=== PATIENT | female | born 1970 | race Caucasian/White ===

== ENCOUNTER → 2017-12-16 | Outpatient (CLI) | payer OTHER, MEDICAID ==
[~2017-12-16] MED LIST: ATIVAN0.5 MG PO; BENTYL 20 MG TA20 M1 PO; CELEXA20 MG PO; CIPRO250 M1 PO; CLEOCIN HCL150 MG PO; COLACE100 MG PO; DEPO-PROVE150 MG/11 IM; ELIQUIS2.5 MG PO; FENTANYL PATCH75 MCG TRANSDERM; GAS RELIEF80 MG PO; IBUPROFEN 800800 M1 PO; LIDOCAINE VISC100 ML SWISH&SPIT; LIORESAL 10 MG10 MG PO; LYRICA 50 MG50 MG PO; MAGOX 400400 MG PO; MIRALAX17 G1 PO; MIRAPEX0.5 MG PO; NEURONTIN 300300 M1 PO; NORCO 5-325 TA1 EAC1 PO; NORCO 5-325 TA1 EACH PO; ONDANSETRON HCL4 M2 PO; OXAYDO7.5 MG PO; OXYBUTYNIN 5 MG5 M2 PO; OXYCODONE HCL15 MG PO; PANTOPRAZOLE SO40 M1 PO; PERCOCET 5-3251 EACH PO; PERCOCET 7.5-31 EACH PO; PERCOCET PO; PHENERGAN 25 MG25 M1 PO; RESTLESS LEG MED; SEROQUEL 50 MG50 MG PO; TRAZODONE 150150 M1 PO; VALIUM5 MG PO; ZANAFLEX4 MG PO; ZOFRAN ODT4 MG PO
== END ==
LOC: M.CT 11:00
DX: S72.091D Other fracture of head and neck of right femur, subsequent encounter for closed fracture with routine healing (principal); M16.11 Unilateral primary osteoarthritis, right hip; X58.XXXD Exposure to other specified factors, subsequent encounter

== ENCOUNTER → 2018-01-13 | Outpatient (CLI) | payer OTHER, MEDICAID ==
[~2018-01-13] VITALS: Ht 167.6 cm; Wt 57.6 kg
== END ==
LOC: M.SUR 09:35 → EDSTATUS 16:21
DX: Z53.09 Procedure and treatment not carried out because of other contraindication (principal)

== ENCOUNTER 2018-02-03 13:18 | Observation (INO) | payer OTHER, MEDICAID ==
[~2018-02-03] VITALS: Ht 167.6 cm; Wt 68.5 kg
[~2018-02-03 13:18] MED LIST changes: -PERCOCET PO
[2018-02-03 13:45] VITALS: BP 111/67
[2018-02-03 18:45] VITALS: BP 120/74
--- NOTE | 2018-02-03 19:00 | NUR ---
PT ARRIVED TO UNIT AT 1830 VIA BED AND PACU SLUNK SKIN CURER, BALDO. BEDSIDE REPORT RECEIVED. PT OX4, LETHARGIC. ABLE TO COMMUNICATE NEEDS TO STAFF. VS OBTAINED. MONITOR PLACED. L CHEST PORT DRSG C/D/I. PT UP TO BSC WITH TRANSFER OF TWO. NEEDED ITEMS AND CALL LIGHT WITHIN REACH.
[2018-02-03 20:02] VITALS: BP 125/70
[2018-02-04 00:04] VITALS: BP 131/76
[2018-02-04 04:00] VITALS: BP 165/92
[2018-02-04 05:47] LABS: HEMATOCRIT 33.8 % (37.0-47.0); HEMOGLOBIN 11.4 gm/dL (12.0-15.0); MCH 30.8 pg (26.0-34.0); MCHC 33.7 g/dL (28.0-37.0); MCV 91.2 fL (80.0-100.0); RBC 3.7 mil/uL (4.20-5.00); RDW-CV 14.6 % (10.5-14.5); WBC 9.3 thou/uL (4.0-11.0)
[2018-02-04 06:20] LABS: ALBUMIN 3.1 g/dL (3.4-5.0); CALCIUM 8.7 mg/dL (8.5-10.1); CREATININE 0.9 mg/dL (0.6-1.3); MAGNESIUM 1.7 mg/dL (1.8-2.4); POTASSIUM 4.1 mmol/L (3.5-5.1); TOTAL BILIRUBIN 0.3 mg/dL (<0.1-1.0); TOTAL PROTEIN 5.8 g/dL (6.4-8.2)
[2018-02-04 07:30] VITALS: BP 114/78
--- NOTE | 2018-02-04 08:14 | NUR ---
PT IS ABLE TO COMMUNICATE HER NEEDS TO STAFF EFFECTIVELY. CURRENT PAIN MEDICATION REGIMEN HAS BEEN ADEQUATE FOR CONTROLLING HER PAIN UP TO THIS TIME. RIGHT HIP DRESSING CLEAN/DRY/INTACT OVERNIGHT. LEFT CHEST PORT PATENT. COLOSTOMY PATENT; PT TAKES CARE OF IT. POSSIBLE DISCHARGE TODAY.
[2018-02-04 10:00] VITALS: BP 105/73
[2018-02-04 11:29] VITALS: BP 105/73
--- NOTE | 2018-02-04 12:25 | EKG ---
[place] [address] ELECTROCARDIOGRAM REPORT Name: PATRICIAJUS Room: [address] M.R.#: [id number] Admission: 02/03/18 Attend Phys: Erick Estes Discharge: Date of : 70 Report #: [id number] THIS REPORT FOR: //name// [facility] Test Date: 2018-02-03 Test Time: 19:24:57 Pat Name: JUS GOMEZ Department: Room: [facility] Gender: F Salvage Winder: KF : 1970 Requested By: Bossman Gutiérrez Order Number: [id number] Reading MD: Ari Krause Measurements Intervals [place] Rate: 55 P: 53 OK: 132 QRS: 37 QRSD: 104 T: 14 QT: 449 QTc: 430 Interpretive Statements Sinus rhythm RSR' in V1 or V2, right VCD or RVH Compared to ECG 09/09/2017 12:35:23 Right ventricular hypertrophy now present RSR' in V1 or V2 now present Electronically Signed On 02-04-2018 12:24:48 CDT by Ari Krause [email or web address] <ELECTRONICALLY SIGNED> By: Ari Krause MD, [facility] 02/04/18 1224 23 23 Ari Krause MD, [facility] /EPI
--- NOTE | 2018-02-04 12:26 | EKG ---
[place] [address] ELECTROCARDIOGRAM REPORT Name: PATRICIAJUS Room: [address] M.R.#: [id number] Admission: 02/03/18 Attend Phys: Erick Estes Discharge: Date of : 70 Report #: [id number] THIS REPORT FOR: //name// [facility] Test Date: 2018-02-04 Test Time: 08:11:08 Pat Name: JUS GOMEZ Department: Room: [facility] Gender: F Handbag Stitcher: EZ : 1970 Requested By: Bossman Gutiérrez Order Number: [id number] Reading MD: Ari Krause Measurements Intervals [place] Rate: 73 P: -13 MO: 113 QRS: 48 QRSD: 92 T: 30 QT: 419 QTc: 462 Interpretive Statements Sinus rhythm Borderline short MO interval Compared to ECG 09/09/2017 12:35:23 No significant changes Electronically Signed On 02-04-2018 12:26:27 CDT by Ari Krause [email or web address] <ELECTRONICALLY SIGNED> By: Ari Krause MD, [facility] 02/04/18 1226 0811 0811 Ari Krause MD, [facility] /EPI
[2018-02-04] MEDS ORDERED: PERCOCET PO (14:01)
[2018-02-04 14:09] VITALS: BP 105/73
--- NOTE | 2018-02-04 16:12 | NUR ---
VSS, ASSUMED CARE IN THE AM, ASSESSMENT PERFORMED AND CHARTED, FALL PRECAUTIONS IN PLACE AND CALL LIGHT IN REACH, PT IS A&O4 AND UP WITH ONE AND WALKER, PT HAS PAIN IN RIGHT HIP, PT IS TOE TOUCH PRECAUTIONS, PT GOAL IS TO D/C TO HOME ON DAY OF CARE, WILL FOLLOW WITH PLAN OF CARE, AT THIS TIME I HAVE RECIEVED D/C ORDERS, FILLED OUT PT D/C ORDERS, AND MEDICATION SHEETS, PT WAS GIVEN PAIN PILL SCRIPTS, AND MEDICATION INFO SHEETS, PT DENIES ANY QUESTIONS OR CONCERNS AT TIME OD D/C ALL BELONGINGS GATHERED AND PLACED WITH PT, PORT A CATH WAS HEPRIN AND D/C'D PT TAKEN OUT VIA WHEEL CHAIR BY STAFF TO CARE, HOURLY ROUNDS COMPLETED.
--- NOTE | 2018-02-05 07:59 | NUR ---
PT ORDERS RECEIVED, PT DISCHARGED FROM FACILITY PRIOR TO COMPLETION OF PT EVALUATION.
--- NOTE | 2018-02-24 16:14 | OP ---
[address] [address] OPERATIVE REPORT Name: JUS GOMEZ Room: [address] Kelsy Greene#: [id number] Admission: 02/03/18 Attend Phys: Erick Estes Discharge: 02/04/18 Date of : 70 Report #: [id number] THIS REPORT FOR: //name// CC: NEIL Richard DICTATED BY: Nicholas Noel DO DATE OF SERVICE: 02/03/2018 PREOPERATIVE DIAGNOSIS: Right hip painful hardware. POSTOPERATIVE DIAGNOSIS: Right hip painful hardware. PROCEDURE PERFORMED: Right hip in situ screw exchange. SURGEON: Weston Richard DO. LAST INSERTER: Nicholas Noel DO. SECOND EXPERIMENTAL MECHANIC SPACECRAFT: Clay Ramirez DO. ANESTHESIA: General. ANTIBIOTICS: 1 gram Ancef IV preoperatively. ESTIMATED BLOOD LOSS: 5 mL. COMPLICATIONS: None. CONDITION: The patient is stable to PACU. INDICATIONS FOR PROCEDURE: The patient is a 47-year-old female who unfortunately suffered a right femoral neck fracture in 08/2017. This was treated with in situ screw fixation. She did initially do well postoperatively. Over the course of her postoperative course, she did have some continued pain at the right hip. Followup radiographs in the clinic did show some backing out of the cannulated screws. She did complain of painful hardware to the lateral aspect of the right hip as well as some occasional pain into the hip. A CT scan was performed which showed some healing at the fracture site, but the fracture is not completely healed. The patient did wish to have removal of screws due to the symptomatic hardware. The risks, alternatives and complications of this were discussed in detail with the patient in clinic. She did wish to proceed. Due to the CT showing that the fracture is not completely healed, we did recommend exchanging the screws rather [place] [address] OPERATIVE REPORT Name: JUS GOMEZ Room: [address] Kelsy Greene#: [id number] Admission: 02/03/18 Attend Phys: Erick Estes Discharge: 02/04/18 Date of : 70 Report #: [id number] DESCRIPTION OF PROCEDURE: The patient was seen and examined in the preoperative holding area. The correct operative extremity was marked by the operating surgeon. She was transferred to the operating room and placed supine on the operating room table. She was given the benefit of general anesthesia. The right foot was padded and placed in a well-padded boot on the fracture table. The left leg was placed in the well-leg car. A timeout was performed verifying correct patient, procedure and operative extremity and all were in agreement. The right lower extremity was prepped and draped in the usual sterile fashion. A skin incision was made using the early previous healed incision. Dissection was carried down through the IT band using sharp dissection. Next, the previous cannulated screws were then palpable. Three guide pins were then inserted through the center of the cannulated screws. The screws were removed and each screw was removed and measured. The new measurements measured 75 mm for each screw. The proximal screws were replaced, 6-0 cannulated 75 mm screws. The inferior screw was also measured to be 75 mm. An 8-0, 75 mm screw was then inserted over the guide pin into as the inferior screw. Intraoperative radiographs showed maintained fracture reduction with 3 screws in appropriate position. The incision was then thoroughly irrigated. The deep IT band was closed with #1 Vicryl followed by 2-0 Vicryl subcutaneously. Eugene were used on the skin. A sterile dressing of Mepilex was applied to the incision at that time. The patient was awakened from anesthesia and transferred to the PACU in stable condition. The patient tolerated this procedure well. There were no complications. <ELECTRONICALLY SIGNED> By: Weston Richard DO 02/24/18 1614 1640 1720Micalessandro Richard DO /nt
== END 2018-02-04 16:00 | disposition home or self-care (01) ==
LOC: M.SUR 13:18 → M.TBA-ER 17:55 → M.2W 17:55
PROVIDERS: ADMIT Internal Medicine
DX: T84.84XA Pain due to internal orthopedic prosthetic devices, implants and grafts, initial encounter (principal); S72.001G Fracture of unspecified part of neck of right femur, subsequent encounter for closed fracture with delayed healing; N32.81 Overactive bladder; G25.81 Restless legs syndrome; F41.9 Anxiety disorder, unspecified; K58.9 Irritable bowel syndrome, unspecified; G43.909 Migraine, unspecified, not intractable, without status migrainosus; E16.2 Hypoglycemia, unspecified; E44.0 Moderate protein-calorie malnutrition; Z68.24 Body mass index [BMI] 24.0-24.9, adult; G62.9 Polyneuropathy, unspecified; F39 Unspecified mood [affective] disorder; G47.00 Insomnia, unspecified; M62.838 Other muscle spasm; R00.1 Bradycardia, unspecified; F17.210 Nicotine dependence, cigarettes, uncomplicated; Z85.048 Personal history of other malignant neoplasm of rectum, rectosigmoid junction, and anus

== ENCOUNTER 2018-11-08 11:27 | Emergency (ER) | payer OTHER, MEDICAID ==
[~2018-11-08] VITALS: Ht 162.6 cm; Wt 58.1 kg
[~2018-11-08 11:27] MED LIST changes: +PERCOCET PO
[2018-11-08] MEDS ORDERED: PERCOCET 5-3251 EACH PO (13:19)
[2018-11-08 13:30] VITALS: BP 122/73
== END 2018-11-08 13:30 | disposition home or self-care (01) ==
LOC: M.ERS 11:27
DX: S22.060A Wedge compression fracture of T7-T8 vertebra, initial encounter for closed fracture (principal); G43.909 Migraine, unspecified, not intractable, without status migrainosus; F17.210 Nicotine dependence, cigarettes, uncomplicated; Z85.048 Personal history of other malignant neoplasm of rectum, rectosigmoid junction, and anus; Z86.2 Personal history of diseases of the blood and blood-forming organs and certain disorders involving the immune mechanism; Z88.6 Allergy status to analgesic agent; Z88.5 Allergy status to narcotic agent; Z88.2 Allergy status to sulfonamides; Z88.1 Allergy status to other antibiotic agents; Z88.8 Allergy status to other drugs, medicaments and biological substances; W18.39XA Other fall on same level, initial encounter; Y93.89 Activity, other specified; Y92.89 Other specified places as the place of occurrence of the external cause; Y99.8 Other external cause status

== ENCOUNTER 2019-02-20 18:11 | Inpatient (IN) | payer OTHER, MEDICAID ==
[~2019-02-20] VITALS: Ht 167.6 cm; Wt 65.3 kg
--- NOTE | ~2019-02-20 | EEG ---
[address] [address] EEG STUDY REPORT Name: JUS GOMEZ Room: [address] IN ..#: [id number] Admission: 02/20/19 Attend Phys: Joseluis Cho, Discharge: Date of : 70 Report #: [id number] THIS REPORT FOR: //name// CC: Barry Cho This patient was admitted with an episode of syncope. EEG is being done to further evaluate that. EEG was done by placing the electrodes by standard 10-20 system of electrode placement. Both referential and sequential montages were used for recording. Background activity in this patient's EEG is about 9 Hz and 30 microvolt. The patient became drowsy that is associated with bilateral slowing and vertex sharp waves. Photic stimulation was unremarkable. Throughout the record, no active epileptiform activity was noticed. IMPRESSION: This patient's EEG is somewhat intermixed with some theta range slowing. That is a nonspecific abnormality, which can occur with encephalopathy, effect of psychotropic medication, dementia, etc. Clinical correlation is recommended. By: 1819 1836Alex Jacome MD /nt
--- NOTE | ~2019-02-20 | CON ---
[address] [address] CONSULTATION Name: MIRACLE GOMEZLILLIAM SHAUN Room: [address] IN M.R.#: [id number] Admission: 02/20/19 Attend Phys: Joseluis Cho, Discharge: Date of : 70 Report #: [id number] THIS REPORT FOR: //name// CC: Barry Cho DATE OF SERVICE: 02/21/2019 HISTORY OF PRESENT ILLNESS: This is a 48-year-old female patient who was evaluated by me for neurological etiology for the patient's episode of passing out. She indicates that she will be standing in the kitchen and the next thing she will notice that she is on the floor. It looks like the episode is going on for more than 1 year. Somebody suggested that she seeks workup for narcolepsy and she has not done that. She gives a history that in 1996 she was undergoing a custody zamora for her daughter. At that time, she started having similar episode. The psychiatrist told her that her body just shut down because of the stress. She also indicated that she is under a lot of stress even now. History is not very clear. There is some headache associated with this. Sometime she said she just falls down and lose her strength. REVIEW OF SYSTEMS: Positive for multiple problems. She has a compression fracture of thoracic vertebra. She has a femoral neck fracture. She had multiple fractures in the body. She has a lot of trouble with the right arm pain. She continues to smoke. She is on multiple medications from the psychiatrist. She indicates that she was on diazepam, but she could not get it filled with her psychiatrist and she has been off for a few weeks. Episode predates that by at least 1-year. She has a history of hypoglycemia. She has a history of anal cancer, she received radiation there. She gets some headache. It is not clear if they are migraine headache. I carried out the 14-point review of system. It does not look like she has any new eye, ENT, cardiac, respiratory, GI, , constitutional, dermatological, hematological, psychiatric, throat, allergic symptom associated with present symptomatology. PAST MEDICAL HISTORY: Positive for similar episode in 1996 when she was under a lot of stress. FAMILY HISTORY: Negative for any congenital epilepsy. SOCIAL HISTORY: She smokes. PHYSICAL EXAMINATION: Indicate she is alert, responsive, able to follow simple and complex command. Her speech, concentration, fund of knowledge and memory is at her baseline. Cranial nerve examination 2-12 [place] [address] CONSULTATION Name: JUS GOMEZ Room: [address] IN ..#: [id number] Admission: 02/20/19 Attend Phys: Joseluis Cho, Discharge: Date of : 70 Report #: [id number] Neuromuscular examination indicate that she has trouble with right hip, but that is her baseline and that is going on for a long time. Her position sense appeared to be intact. Reflexes are symmetrical at least in the upper extremities. No cerebellar sign. I could not look at the patient's fundus. She is a thinly built individual. Her hearing and vision looks adequate. She has no thyroid mass. Cardiac examination is unremarkable. No marked respiratory difficulty was noticed. She does have scattered rhonchi on both sides. Blood pressure is 135/79, pulse is 99, and temperature is 99. LABORATORY DATA: Her white count is normal. Sodium is 147. She did have multiple CT scans which demonstrated multiple abnormality. IMPRESSION: 1. As far as episode of passing out is concerned, it is unlikely that they are neurological. However, I will do some basic workup to exclude that. 2. She has multiple other problems including the hip problem, compression fracture of the spine. I will defer that evaluation and management to you. I did order an MRI of the thoracic spine to evaluate that further. 3. She probably needs some other workup including cardiac workup and systemic workup to exclude any pathology in that regard. 4. She needs a psychiatric consult. 5. She may be having some withdrawal from diazepam because she has been on that for long time. Again, psychiatrist need to address that. RECOMMENDATIONS: Neurologically, I will do an MRI of the brain and an EEG. If that is negative, she should go to [facility] or [facility] to have a prolonged EEG done. In that circumstances, she should be worked up for systemic cause for her problem as well as follow up with her psychiatrist. She should not drive and she should take seizure precautions, which were discussed with her. We will follow up on this testing, but I went ahead and ordered an MRI of the thoracic spine along, so that she can get it done with MRI of the brain. Thank you very much for this referral and if you have any question, please feel free to contact me. By: 1321 0320Alex Jacome MD /tristan
[2019-02-20 18:18] VITALS: BP 144/79
[2019-02-20] MEDS ORDERED: GAS-X125 MG PO (18:26)
[2019-02-20] MEDS ORDERED: COLACE100 MG PO (18:26)
--- NOTE | 2019-02-20 19:26 | NUR ---
ASSUMED PT CARE C-COLLAR PLACED
[2019-02-20 19:34] LABS: ABSOLUTE BASOPHILS 0.1 thou/uL (0.0-0.2); ABSOLUTE EOSINOPHILS 0.1 thou/uL (0.0-0.7); ABSOLUTE MONOCYTES 0.9 thou/uL (0.0-1.2); ABSOLUTE NEUTROPHILS 3.7 thou/uL (1.6-8.1); BASOPHILS 0.7 %; EOSINOPHILS 1.8 %; HEMATOCRIT 29.9 % (37.0-47.0); HEMOGLOBIN 10.2 gm/dL (12.0-15.0); LYMPHOCYTES 38.6 %; MCH 31.4 pg (26.0-34.0); MCV 92.3 fL (80.0-100.0); MONOCYTES 11.8 %; NUCLEATED RBCS 0 /100WBC; PLATELET COUNT* 321 thou/uL (150-400); POLYS 47.1 %; RBC 3.24 mil/uL (4.20-5.00); RDW-CV 13.7 % (10.5-14.5); WBC 7.8 thou/uL (4.0-11.0)
[2019-02-20 19:51] LABS: ANION GAP 15 mmol/L (7-16); BUN 16 mg/dL (7-18); CALCIUM 8.8 mg/dL (8.5-10.1); CHLORIDE 111 mmol/L (98-107); CO2 21 mmol/L (21-32); GLUCOSE 79 mg/dL (70-99); POTASSIUM 3.1 mmol/L (3.5-5.1); SODIUM 147 mmol/L (136-145); TROPONIN-I LEVEL <0.06 ng/mL (<0.06)
[2019-02-20 19:52] LABS: ALBUMIN 3.3 g/dL (3.4-5.0); ALKALINE PHOSPHATASE 110 U/L (46-116); LIPASE 95 U/L (73-393); SGOT 15 U/L (15-37); SGPT 20 U/L (30-65); TOTAL BILIRUBIN 0.2 mg/dL (<0.1-1.0); TOTAL PROTEIN 6.2 g/dL (6.4-8.2)
[2019-02-20 20:30] LABS: URINE BILIRUBIN NEGATIVE (Negative); URINE BLOOD NEGATIVE (Negative); URINE CLARITY CLEAR; URINE COLOR YELLOW; URINE GLUCOSE-RANDOM NEGATIVE (Negative); URINE KETONES NEGATIVE (Negative); URINE LEUKOCYTES-REFLEX NEGATIVE (Negative); URINE NITRITE-REFLEX NEGATIVE (Negative); URINE PROTEIN TRACE (Negative); URINE SPECIFIC GRAVITY >= 1.030 (1.005-1.030); URINE UROBILINOGEN 0.2 E.U./dl (0.2-1.0)
[2019-02-20 20:36] LABS: AMP/METHAMP Negative (Negative); BARBITURATES Negative (Negative); BENZODIAZEPINES Negative (Negative); COCAINE Negative (Negative); METHADONE Negative (Negative); OPIATES Negative (Negative); PCP Negative (Negative); THC POSITIVE (Negative)
[2019-02-20 22:01] VITALS: BP 136/75
[2019-02-20 22:30] VITALS: BP 107/73
[2019-02-20] MEDS ORDERED: NEXIUM40 MG PO (22:43)
[2019-02-20] MEDS ORDERED: ASPERCREME1 EACH TOP (22:45)
[2019-02-20] MEDS ORDERED: OXYBUTYNIN 5 MG5 M2 PO (22:46)
[2019-02-20] MEDS ORDERED: PHENERGAN 25 MG25 M1 PO (22:48)
--- NOTE | 2019-02-21 00:01 | NUR ---
48 Y/O FEMALE ADMITTED TO TELEMETRY ROOM 232 AT APPROXIMATELY 2205 WITH AN ADMITTING DIAGNOSIS OF SYNCOPE, CHRONIC HIP PAIN, T8 COMPRESSION FRACTURE. PT TRACING SR ON MONITOR. DENIES SOA, CP, N/V/D. PT HAS COLOSTOMY. PT REPORTS 7/10 RIGHT HIP/GROIN PAIN. WHILE RECONCILING HOME MEDICATIONS, PT STATES THAT SHE WILL NO LONGER USE [facility] STARTED TO REFUSE TO REFILL PRESCRIPTIONS FROM HER FROM EMERGENCY ROOMS D/T TO EXCESSIVE AMOUNTS OF PRESCRIPTIONS FROM MULTIPLE EMERGENCY ROOMS. VSS. PT DOES NOT APPEAR TO BE IN ANY DISTRESS AT THIS TIME. PT DENIES ANY FURTHER NEEDS AT THIS TIME. HOURLY ROUNDING FOR PT SAFETY. CLWR.
[2019-02-21 04:00] VITALS: BP 106/67
[2019-02-21 08:00] VITALS: BP 137/81
--- NOTE | 2019-02-21 10:09 | NUR ---
ASSUMED CARE OF PATIENT THIS AM AT 0730. PATIENT IS ALERT AND ORIENTED X 4. SHE C/O LEFT KNEE AND HIP PAIN. PATIENT MEDICATED FOR PAIN X 1. TELE SHOWS NSR. PATIENT TAKEN TO RADOLOGY PER W/C FOR TESTS.
[2019-02-21 12:00] VITALS: BP 135/79
--- NOTE | 2019-02-21 13:24 | EKG ---
[place] [address] ELECTROCARDIOGRAM REPORT Name: PATRICIAJUS SHAUN Room: [address] ADM IN M.R.#: [id number] Admission: 02/20/19 Attend Phys: Joseluis Cho, Discharge: Date of : 70 Report #: [id number] THIS REPORT FOR: //name// [facility] ED Test Date: 2019-02-20 Test Time: 19:05:20 Pat Name: JUS GOMEZ Department: Room: [facility] Gender: Graphite Grinder: Emma OAKES : 1970 Requested By: Neelima Serrano Order Number: [id number] MD: Gibran Tate Measurements Intervals [place] Rate: 75 P: 41 OH: 131 QRS: 37 QRSD: 105 T: 17 QT: 412 QTc: 461 Interpretive Statements Sinus rhythm Compared to ECG 02/04/2018 08:11:08 No significant changes Electronically Signed On 02-21-2019 13:24:22 CDT by Gibran Tate [email or web address] <ELECTRONICALLY SIGNED> By: Gibran Tate MD, [facility] 02/21/19 1324 190 04 Gibran Tate MD, FAC /EPI
--- NOTE | 2019-02-21 13:55 | NUR ---
MET WITH PT TO DISCUSS HOME SITUATION/DC PLANNING. PT LIVES ALONE IN [place] MOTHER AND DTR LIVE CLOSEBY AND ASSIST WITH TRANSPORTATION NEEDED. PT USES [employer] AND HAS 2 OSTOMIES, GETS HER SUPPLIES THRU [employer]. PT STTES SHE IS NORMALLY ABLE TO DO HER OWN ADLS AND IADLS BUT HAVING MORE DIFFICULTY WITH CLEANING. PT IS INTERESTED IN GETTING ASSIST WITH IT AND IS INTERESTED IN IN HOME CARE THRU HER MEDICAID IF QUALIFIES. WILL CHECK [facility]. PT HAS HAD HH IN THE PAST, SHE IS INTERESTED IN HH AT DC ALSO, HAS NO PREFERENCE ON AG[facility], WOULD BE AGREEABLE TO [facility] FOR THEM ALSO. HAVE ASKED [facility] TO MEET WITH PT TO DISCUSS. WILL FOLLOW
[2019-02-21 14:39] LABS: CALCIUM 8.3 mg/dL (8.5-10.1); MAGNESIUM 1.7 mg/dL (1.8-2.4)
[2019-02-21 16:00] VITALS: BP 129/66
--- NOTE | 2019-02-21 16:08 | 2DMMODE ---
[place] [address] 2 D/M-MODE ECHOCARDIOGRAM Name: JUS GOMEZ Room: [address] IN [facility]#: [id number] Admission: 02/20/19 Attend Phys: Joseluis Looney Discharge: Date of : 70 Date of Service: 02/21/19 1608 Report #: [id number] THIS REPORT FOR: //name// APPROVED REPORT Study performed: 02/21/2019 14:36:30 EXAM: Comprehensive 2D, Doppler, and color-flow Echocardiogram Patient Location: In-Patient Room #: [facility] Status: routine BSA: 1.69 HR: 67 bpm BP: 137/81 mmHg Rhythm: NSR Other Information Study Quality: Good Indications Syncope 2D Dimensions IVSd: 10.23 (7-11mm) LVOT Diam: 18.62 (18-24mm) LVDd: 42.81 mm PWd: 7.84 (7-11mm) Ascending Ao: 28.52 (22-36mm) LVDs: 23.10 (25-40mm) Aortic Root: 29.37 mm Volumes Left Atrial Volume (Systole) LA ESV Index: 17.20 mL/m2 Aortic Valve AoV Peak Patrick.: 1.38 m/s AO Peak Gr.: 7.56 mmHg LVOT Max P.60 mmHg AO Mean Gr.: 3.85 mmHg LVOT Mean P.12 mmHg LVOT Max V: 1.07 m/s AO V2 VTI: 24.11 cm LVOT Mean V: 0.66 m/s AFSHAN (VTI): 2.38 cm2 LVOT V1 VTI: 21.07 cm Mitral Valve E/A Ratio: 1.76 MV Decel. Time: 203.05 ms MV E Max Patrick.: 0.80 m/[place] [address] 2 D/M-MODE ECHOCARDIOGRAM Name: PATRICIAJUS Room: [address] IN ..#: [id number] Admission: 02/20/19 Attend Phys: Joseluis Looney Discharge: Date of : 70 Date of Service: 02/21/19 1608 Report #: [id number] MV PHT: 58.88 ms MVA (PHT): 3.74 cm2 TDI E/Lateral E': 5.33 E/Medial E': 6.15 Medial E' Patrick.: 0.13 m/s Lateral E' Patrick.: 0.15 m/s Pulmonary Valve PV Peak Patrick.: 0.81 m/s PV Peak Gr.: 2.63 mmHg Left Ventricle The left ventricle is normal size. There is normal LV segmental wall motion. There is normal left ventricular wall thickness. Left ventricular systolic function is normal. The left ventricular ejection fraction is within the normal range. LVEF is 60-65%. The left ventricular diastolic function is normal. Right Ventricle The right ventricle is normal size. The right ventricular systolic function is normal. Atria The left atrium size is normal. The right atrium size is normal. Aortic Valve The aortic valve is normal in structure. No aortic regurgitation is present. There is no aortic valvular stenosis. Mitral Valve The mitral valve is normal in structure. Trace mitral regurgitation. No evidence of mitral valve stenosis. Tricuspid Valve The tricuspid valve is normal in structure. Unable to assess PA pressure. Trace tricuspid regurgitation. Pulmonic Valve The pulmonary valve is normal in structure. There is no pulmonic valvular regurgitation. Great Vessels The aortic root is normal in size. IVC is normal in size and collapses >50% [place] [address] 2 D/M-MODE ECHOCARDIOGRAM Name: JUS GOMEZ Room: [address] IN [facility]#: [id number] Admission: 02/20/19 Attend Phys: Joseluis Looney Discharge: Date of : 70 Date of Service: 02/21/19 1608 Report #: [id number] Pericardium There is no pericardial effusion. <Conclusion> Left ventricular systolic function is normal. The left ventricular ejection fraction is within the normal range. <ELECTRONICALLY SIGNED> By: Gibran Tate MD, [facility] 02/21/19 1608 1608 1608 Gibran Tate MD, [facility] /INF
[2019-02-21 19:15] VITALS: BP 125/71
[2019-02-22] VITALS: BP 124/77
--- NOTE | 2019-02-22 02:39 | NUR ---
INITIAL ASSESSMENT COMPLETED CHARTED. TRACING SR ON MONITOR. VSS. PT C/O CHRONIC HIP PAIN. PRN PAIN MEDICATIONS GIVEN PER EMAR. PT SLEEPING. IVF INFUSING ORDERED. NO NEW NEEDS OR CONCERNS AT THIS TIME. HOURLY ROUNDING AND FALL PRECAUTIONS IN PLACE. CLWR.
[2019-02-22 04:00] VITALS: BP 106/65
[2019-02-22 06:07] LABS: ALBUMIN 2.6 g/dL (3.4-5.0); CALCIUM 8.4 mg/dL (8.5-10.1); CREATININE 0.9 mg/dL (0.6-1.3); POTASSIUM 3.7 mmol/L (3.5-5.1); TOTAL BILIRUBIN 0.2 mg/dL (<0.1-1.0); TOTAL PROTEIN 5.3 g/dL (6.4-8.2)
--- NOTE | 2019-02-22 08:00 | NUR ---
RECEIVED REPORT AND ASSUMED CARE OF PT AT 0730.PT A/OX4.TRACING SR ON THE MONITOR.IV PATENT AND WITH FLUID INFUSING.PT COMPLAINTS OF PAIN,MANAGED WITH MEDS.UP STAND BY.ON RA.CALL LIGHT AND FALL PRECAUTIONS IN PLACE.COLOCTOMY STOMA PINK AND MOIST WITH BAG INATCT AND PATENT.WILL CONTINUE TO MONITOR.
[2019-02-22 08:26] VITALS: BP 136/84
[2019-02-22 12:36] VITALS: BP 136/84
--- NOTE | 2019-02-22 12:39 | NUR ---
JACQUELYN FROM [facility] MET WITH PT AND THEY ARE ABLE TO ACCEPT FOR HH. PT TO DC LATER TODAY. FAXED DC ORDERS TO JACQUELYN AT [phone]. DISCUSSED AGAIN PT CONTACTING MEDICAID TO SET UP IN HOME SERVICES VISIT. PT VOICED CONCERNS ABOUT HER MEDS, NURSE AWARE. DENIES OTHER NEEDS.
--- NOTE | 2019-02-22 14:23 | NUR ---
PT OK TO DISCHARGE.ALL DISCHARGE WORK COMPLETED.EDUCATION PROVIDED ON FOLLOW UP AND MEDS.HEART MONITOR AND IV TAKEN OUT.HEART MONITOR RETURNED TO STATION.ALL PERSONAL BELONGINGS HANDED OVER TO PT.PT WHEELED TO HER CAR BY NURSING STAFF.
--- NOTE | 2019-02-22 14:34 | NUR ---
I have reviewed the documentation by CLEO RIOS from 4720 to 6107 and I concur with it.
== END 2019-02-22 14:36 | disposition home health service (06) | DRG 551 ==
LOC: M.ERS 18:11 → M.2W 20:59 → M.TBA-ER 20:59 → M.2W 21:43
PROVIDERS: Internal Medicine; Nurse Practitioner Family; ADMIT Family Medicine
DX: S22.069A Unspecified fracture of T7-T8 vertebra, initial encounter for closed fracture (principal); S72.001A Fracture of unspecified part of neck of right femur, initial encounter for closed fracture; E43 Unspecified severe protein-calorie malnutrition; F12.90 Cannabis use, unspecified, uncomplicated; F17.210 Nicotine dependence, cigarettes, uncomplicated; E16.2 Hypoglycemia, unspecified; F41.9 Anxiety disorder, unspecified; G43.909 Migraine, unspecified, not intractable, without status migrainosus; F32.9 Major depressive disorder, single episode, unspecified; G89.4 Chronic pain syndrome; E86.0 Dehydration; S22.079A Unspecified fracture of T9-T10 vertebra, initial encounter for closed fracture; Z93.3 Colostomy status; Z93.2 Ileostomy status; Z85.048 Personal history of other malignant neoplasm of rectum, rectosigmoid junction, and anus; Z88.6 Allergy status to analgesic agent; Z88.2 Allergy status to sulfonamides; Z88.8 Allergy status to other drugs, medicaments and biological substances; Z92.21 Personal history of antineoplastic chemotherapy; Z92.3 Personal history of irradiation; Z90.49 Acquired absence of other specified parts of digestive tract; Z68.23 Body mass index [BMI] 23.0-23.9, adult; Z79.899 Other long term (current) drug therapy; W18.39XA Other fall on same level, initial encounter; Y93.89 Activity, other specified; Y92.89 Other specified places as the place of occurrence of the external cause; Y99.8 Other external cause status

== ENCOUNTER → 2019-03-20 | Outpatient (CLI) | payer OTHER, MEDICAID ==
[~2019-03-20] MED LIST changes: +AGONEAZE 2.5%-1 EACH; +ASPERCREME1 EACH TOP; +GAS-X125 MG PO; +LYRICA100 MG PO; +MOBIC15 MG PO; +NEXIUM40 MG PO; +PROAIR HFA8.5 GM; +VOLTAREN GEL 1100 G2 TOP
--- NOTE | 2019-04-03 15:47 | PAINCON ---
[address] [address] PAIN MANAGEMENT CONSULTATION Name: JUS GOMEZ Room: [facility] ROZINA Greene#: [id number] Admission: 03/20/19 Attend Phys: Alejandra Rose MD Discharge: Date of : 70 Report #: [id number] THIS REPORT FOR: //name// CC: Barry Rose DATE OF SERVICE: 03/20/2019 CHIEF COMPLAINT: Unbearable pain from my hips to my knees sometimes down to my ankles. HISTORY OF PRESENT ILLNESS: The patient is a 48-year-old female who has been referred to the pain clinic for evaluation. She states that she has pain, which has been problematic for some time. She has been having problems since 2017. She has a somewhat long and complicated history. She has been experiencing some pain in her knee and her hip. States that she feels somewhat like she is having charley horse in her leg. States that her hip had been fractured in the past. As a result of stabilizing her hip, they put in a set of 3 screws. States that the screws were not the right size. As a result, she had another operation at another point in time with placement of smaller screws. She continues to have pain and discomfort at this point, she describes pain, particularly when she is moving. She is unable to walk on her leg without significant discomfort. States that she has a number of heel spacers in her shoe because one leg appears longer than the other. Describes her discomfort as steady, constant, shooting, cramping, throbbing, and pounding. Rates her pain as a 9/10 most of the time. She states that she oftentimes uses a crutch. She also ambulates using a wheelchair. This involves the right leg and right hip. ALLERGIES: CODEINE, HYDROCODONE, BACTRIM, TRAMADOL, AND MOVANTIK. CURRENT MEDICATIONS: Albuterol, ProAir 8.5 mg q. 4 hours p.r.n., baclofen 10 mg b.i.d., total of the dose to 20 mg b.i.d., Valium 5 mg b.i.d., Bentyl 20 mg, irritable bowel, 40 mg 4 times daily, Colace 100 mg, Nexium 40 mg, ibuprofen 800 mg, Aspercreme p.r.n., Depo-Provera 150 mg intramuscular, oxybutynin 5 mg t.i.d., Mirapex 0.5 mg restless leg t.i.d., Lyrica 50 mg b.i.d., Phenergan 25 mg q.6 hours for vomiting, Seroquel 50 mg sleep/anxiety, simethicone 125 mg, and Desyrel 300 mg at bedtime. PAST MEDICAL HISTORY: 1. Anal cancer, status post surgery. 2. Hypoglycemia. 3. Anemia. 4. Migraine. 5. Fracture, right hip. 6. T9 compression fracture. 7. [place] [address] PAIN MANAGEMENT CONSULTATION Name: JUS GOMEZ Room: [facility]#: [id number] Admission: 03/20/19 Attend Phys: Alejandra Rose MD Discharge: Date of : 70 Report #: [id number] 8. Black outs. 9. Hypotension. 10. PTSD. 11. Tooth problems, the patient is edentulous. 12. Neck pain. 13. Drug-induced constipation. 14. Insomnia. 15. Chronic pain syndrome. 16. The patient has had greater than 10 surgeries. 17. Radiation therapy to the pelvis area because of anal cancer. PAST SURGICAL HISTORY: Surgery for removal of malignant neoplasm from the anus on numerous occasions. The patient has provided a listing of her surgeries, it is significant, please see chart. SOCIAL HISTORY: The patient is disabled. She lives alone. REVIEW OF SYSTEMS: Weight change, decreased appetite, fatigue, weakness, headaches, wears glasses, chronic sinus problems, shortness of breath, swelling of feet, ankles and hands, asthma, loss of appetite, nausea and vomiting, bowel pain, constipation, abdominal pain, joint pain, joint stiffness, weakness of muscles, muscle cramping, back pain, difficulty walking, rash, psoriasis, varicose veins, spider veins, convulsions/seizures/blackouts. Head injury, 3 concussions in 1-1/2 to 2 months. Memory loss, nervousness, depression, insomnia, bleeding, and anemia. LABORATORY DATA: No new laboratory values are available at the time of our interview. PAIN CLINIC ASSESSMENT AND PQRS: 1. History of osteoarthritis. The patient has arthritic changes involving her right hip and leg. She is not being treated for osteoarthritis. 2. Height 5 feet 6 inches, weight 123 pounds, BMI is 20. 3. Vital signs; blood pressure 106/60, heart rate 132, respiratory rate 16, room air saturation 95%, temperature is 98.9. 4. Pain intensity is 9/10. 5. Fall risk. The patient had her primary fall, which was problematic in 2017. As when she broke her hip. Had placement of screws. 6. Blood thinner. The patient is not on a blood thinning medication. 7. Hypertension. The patient is not being treated for hypertension. 8. Opioids greater than 6 weeks. The patient is not receiving opioid medications at this juncture. 9. Risk assessment tool, moderate for use of opioids. 10. Functional assessment tool. 11. Recreational drug use. The patient denies use of recreational drugs. 12. Tobacco: [place] [address] PAIN MANAGEMENT CONSULTATION Name: JUS GOMEZ Room: [facility]#: [id number] Admission: 03/20/19 Attend Phys: Alejandra Rose MD Discharge: Date of : 70 Report #: [id number] 13. Alcohol. The patient denies significant use of alcoholic beverages. PHYSICAL EXAMINATION: GENERAL: The patient is a white female. Appears somewhat older than her stated age. HEENT: Normocephalic, atraumatic. Extraocular eye muscles intact. The patient is edentulous. NECK: Without adenopathy or JVD. MUSCULOSKELETAL: The patient complains of some pins and needle sensation down into her left arm. Complains of pain and discomfort in the right hip as well as the lateral portion of her right thigh. The patient feels that she may have torn some ligaments or muscles in her right knee. The patient feels that her right leg is about two inches shorter than the left. Does have some shoe inserts into her right shoe. IMPRESSION: 1. Chronic pain primarily involving the right lower extremity. 2. Anal cancer, status post surgery. 3. Hypoglycemia. 4. Anemia. 5. Migraines. 6. Fracture, right hip. 7. T9 compression fracture. 8. T8 compression fracture. 9. Black outs. 10. Hypotension. 11. PTSD. 12. Tooth problems, the patient is edentulous. 13. Neck pain. 14. Drug-induced constipation. 15. Insomnia. 15. Chronic pain syndrome. 17. The patient has had greater than 10 surgeries. 18. Radiation therapy to the pelvis area because of anal cancer. RECOMMENDATIONS: We spoke with the patient for about 45 minutes. She does have a very complex case. I am not sure that we have in our pain clinic capabilities to handle such a complex patient. I think the patient should consider physical therapy. We would have the patient continue with her medications of trazodone 150 mg 2 p.o. at bedtime, Lyrica 100 mg b.i.d., Meloxicam 15 mg 1 p.o. daily and the patient should monitor her GI tract if she notes any problems with worsening of her GI tract she should consider stopping the Mobic medication. The patient also has chronic problems with her back. I think evaluation for the possibility of a back brace to reduce pain by restricting her mobility would be reasonable. We have [place] [address] PAIN MANAGEMENT CONSULTATION Name: JUS GOMEZ [id number] Admission: 03/20/19 Attend Phys: Alejandra Rose MD Discharge: Date of : 70 Report #: [id number] We would like to thank you for letting us participate in her care. We hope she continues to improve. <ELECTRONICALLY SIGNED> By: Alejandra Rose MD 04/03/19 1547 [id number]. Andres Rose MD /nt
== END ==
LOC: M.PC 01:42
DX: S72.001A Fracture of unspecified part of neck of right femur, initial encounter for closed fracture (principal); F43.10 Post-traumatic stress disorder, unspecified; S22.060A Wedge compression fracture of T7-T8 vertebra, initial encounter for closed fracture; S22.070A Wedge compression fracture of T9-T10 vertebra, initial encounter for closed fracture; M25.561 Pain in right knee; M25.562 Pain in left knee; G89.4 Chronic pain syndrome; M54.2 Cervicalgia; G43.909 Migraine, unspecified, not intractable, without status migrainosus; D64.9 Anemia, unspecified; E16.2 Hypoglycemia, unspecified; G47.00 Insomnia, unspecified; C21.0 Malignant neoplasm of anus, unspecified; I95.9 Hypotension, unspecified; R55 Syncope and collapse; K59.09 Other constipation; Z79.899 Other long term (current) drug therapy; X58.XXXA Exposure to other specified factors, initial encounter; Y93.89 Activity, other specified; Y92.89 Other specified places as the place of occurrence of the external cause; Y99.8 Other external cause status

== ENCOUNTER 2019-03-22 13:56 | Emergency (ER) | payer OTHER, MEDICAID ==
[~2019-03-22] VITALS: Ht 167.6 cm; Wt 55.3 kg
[~2019-03-22 13:56] MED LIST changes: -AGONEAZE 2.5%-1 EACH; -VOLTAREN GEL 1100 G2 TOP
[2019-03-22] MEDS ORDERED: AGONEAZE 2.5%-1 EACH (14:12)
[2019-03-22] MEDS ORDERED: VOLTAREN GEL 1100 G2 TOP (14:46)
[2019-03-22 16:01] VITALS: BP 104/74
== END 2019-03-22 15:30 | disposition home or self-care (01) ==
LOC: M.ERS 13:56
DX: M25.561 Pain in right knee (principal); M25.551 Pain in right hip; G43.909 Migraine, unspecified, not intractable, without status migrainosus; I95.9 Hypotension, unspecified; F17.210 Nicotine dependence, cigarettes, uncomplicated; Z88.1 Allergy status to other antibiotic agents; Z88.2 Allergy status to sulfonamides; Z88.5 Allergy status to narcotic agent; Z88.6 Allergy status to analgesic agent; Z88.8 Allergy status to other drugs, medicaments and biological substances; Z85.048 Personal history of other malignant neoplasm of rectum, rectosigmoid junction, and anus; Z86.2 Personal history of diseases of the blood and blood-forming organs and certain disorders involving the immune mechanism

== ENCOUNTER 2019-04-26 22:23 | Inpatient (IN) | payer OTHER, MEDICAID ==
[~2019-04-26] VITALS: Ht 167.6 cm; Wt 57.6 kg
[~2019-04-26 22:23] MED LIST changes: +AGONEAZE 2.5%-1 EACH; +VOLTAREN GEL 1100 G2 TOP
[2019-04-26 22:42] VITALS: BP 113/95
[2019-04-26 23:27] LABS: ABSOLUTE BASOPHILS 0.1 thou/uL (0.0-0.2); ABSOLUTE EOSINOPHILS 0.2 thou/uL (0.0-0.7); ABSOLUTE LYMPHOCYTES 2.5 thou/uL (0.8-5.3); ABSOLUTE MONOCYTES 0.8 thou/uL (0.0-1.2); ABSOLUTE NEUTROPHILS 4.4 thou/uL (1.6-8.1); BASOPHILS 0.9 %; EOSINOPHILS 2.3 %; HEMATOCRIT 37.4 % (37.0-47.0); HEMOGLOBIN 12.4 gm/dL (12.0-15.0); LYMPHOCYTES 31.6 %; MCH 30.4 pg (26.0-34.0); MCHC 33.1 g/dL (28.0-37.0); MCV 91.7 fL (80.0-100.0); MONOCYTES 10.2 %; MPV 7.8 fl. (7.2-11.1); NUCLEATED RBCS 0 /100WBC; PLATELET COUNT* 367 thou/uL (150-400); RBC 4.08 mil/uL (4.20-5.00)
[2019-04-26 23:34] LABS: ANION GAP 13 mmol/L (7-16); BUN 22 mg/dL (7-18); CALCIUM 9.8 mg/dL (8.5-10.1); CHLORIDE 110 mmol/L (98-107); CO2 23 mmol/L (21-32); CREATININE 1.2 mg/dL (0.6-1.3); GLUCOSE 110 mg/dL (70-99); SODIUM 146 mmol/L (136-145)
[2019-04-26 23:43] LABS: ALBUMIN 3.4 g/dL (3.4-5.0); ALKALINE PHOSPHATASE 117 U/L (46-116); SGOT 13 U/L (15-37); SGPT 26 U/L (30-65); TOTAL BILIRUBIN 0.2 mg/dL (<0.1-1.0); TOTAL PROTEIN 6.8 g/dL (6.4-8.2); TROPONIN-I LEVEL <0.06 ng/mL (<0.06)
[2019-04-27 03:35] VITALS: BP 133/79
--- NOTE | 2019-04-27 09:46 | EKG ---
[place] [address] ELECTROCARDIOGRAM REPORT Name: PATRICIAJUS SHAUN Room: [place] [address] ADM IN M.R.#: [id number] Admission: 04/26/19 Attend Phys: Analy Bush MD Discharge: Date of : 70 Report #: [id number] THIS REPORT FOR: //name// [facility] ED Test Date: 2019-04-26 Test Time: 23:41:47 Pat Name: JUS GOMEZ Department: Room: [facility] Gender: F Technical Communicator: ID : [id number] Requested By: Kristopher Pratt Order Number: [id number] MD: Ari Krause Measurements Intervals [place] Rate: 70 P: -14 TX: 123 QRS: 25 QRSD: 86 T: 19 QT: 407 QTc: 440 Interpretive Statements Sinus rhythm Compared to ECG 02/20/2019 19:05:20 No significant changes Electronically Signed On 04-27-2019 9:45:50 CDT by Ari Krause [email or web address] <ELECTRONICALLY SIGNED> By: Ari Krause MD, [facility] 04/27/19 0945 [id number] Ari Krause MD, [facility] /EPI
[2019-04-27 13:32] VITALS: BP 124/90
[2019-04-27 14:56] VITALS: BP 124/90
== END 2019-04-27 14:56 | disposition home or self-care (01) | DRG 919 ==
LOC: M.ERS 22:23 → M.TBA-ER 23:32
PROVIDERS: Emergency Medicine Emergency Medical Services; ADMIT Internal Medicine
DX: M96.89 Other intraoperative and postprocedural complications and disorders of the musculoskeletal system (principal); S72.001A Fracture of unspecified part of neck of right femur, initial encounter for closed fracture; E44.0 Moderate protein-calorie malnutrition; G89.29 Other chronic pain; F17.210 Nicotine dependence, cigarettes, uncomplicated; W06.XXXA Fall from bed, initial encounter; Z93.3 Colostomy status; Z68.20 Body mass index [BMI] 20.0-20.9, adult; Z85.048 Personal history of other malignant neoplasm of rectum, rectosigmoid junction, and anus; Z79.899 Other long term (current) drug therapy; Z88.6 Allergy status to analgesic agent; Z88.2 Allergy status to sulfonamides; Z88.8 Allergy status to other drugs, medicaments and biological substances; Y93.89 Activity, other specified; Y92.89 Other specified places as the place of occurrence of the external cause; Y99.8 Other external cause status

== ENCOUNTER → 2019-05-10 | Outpatient (CLI) | payer OTHER, MEDICAID ==
[~2019-05-10] MED LIST changes: +BUTRANS1 EAC1 TRANSDERM
--- NOTE | ~2019-05-10 | PAINCON ---
[address] [address] PAIN MANAGEMENT CONSULTATION Name: JUS GOMEZ Room: [facility] Jc#: [id number] Admission: 05/10/19 Attend Phys: Alejandra Rose MD Discharge: Date of : 70 Report #: [id number] THIS REPORT FOR: //name// CC: Barry Rose DATE OF SERVICE: 05/10/2019 CHIEF COMPLAINT: Right hip pain. HISTORY: The patient is a 48-year-old female who has been seen in the pain clinic. The patient as you recall has quite a complicated history. States that she has had some problems with colon cancer. She was irradiated. She fractured her hip. She states that the screws were placed. Screws have migrated. States that she is going to see an Orthopedic surgeon tomorrow, 05/11/2019. She has difficulty walking because of the instability of her hip. The patient states she has a history of blackouts. She has used opioid medications in the past. States that with the opioid medication such as hydrocodone, oxycodone, the efficacy/effect of these medications began to wear off relatively quickly. She was treated with fentanyl patches. She felt that those medications may have been helpful. ALLERGIES: CODEINE, HYDROCODONE, BACTRIM, TRAMADOL, AND MOVANTIK. CURRENT MEDICATIONS: Albuterol, ProAir 8.5 mg q.4 hours p.r.n., baclofen 10 mg t.i.d., total dose is 20 mg b.i.d., Valium 5 mg b.i.d., Bentyl 20 mg for irritable bowel, 40 mg 4 times daily, Colace 100 mg, Nexium 4 mg, ibuprofen 800 mg, Aspercreme p.r.n., Depo-Provera 150 mg intramuscular, oxybutynin 5 mg t.i.d., Mirapex 0.5 mg for restless leg, Lyrica 50 mg b.i.d., Phenergan 25 mg q.6 hours for vomiting, Seroquel 50 mg at bedtime for sleep and anxiety, simethicone 125 mg, Desyrel 300 mg at bedtime. PAIN CLINIC ASSESSMENT AND PQRS: 1. The patient has some osteoarthritic changes involving her right hip. She is not being treated for osteoarthritis. 2. Height was 5 feet 6 inches, weight 128 pounds, BMI is approximately 20. 3. Vital Signs: Blood pressure 115/73, heart rate 95, respiratory rate 16, room air saturation 95%, temperature 98.6. 4. The patient rates her pain as 9/10. The patient has not fallen, but did fall and break her hip in 2017. 5. Blood thinner. The patient is not on a blood thinning medication. 6. Hypertension. The patient is not being treated for hypertension. 7. Opioids greater than 6 weeks. The patient is not receiving opioid medication at this juncture. 8. Risk assessment tool, moderate for use of opioids. 9. Functional [place] [address] PAIN MANAGEMENT CONSULTATION Name: JUS GOMEZ [facility] [id number] Admission: 05/10/19 Attend Phys: Alejandra Rose MD Discharge: Date of : 70 Report #: [id number] 10. Recreational drug use. The patient denies use of recreational drugs, but did use medical marijuana in the past. 11. Tobacco: The patient does smoke. The patient denies significant use of alcoholic beverages. PHYSICAL EXAMINATION: GENERAL: The patient is a white female. She appears older than her stated age. She is accompanied by her mother and a young child. HEENT: Normocephalic, atraumatic. Extraocular eye muscles intact. The patient is edentulous. MUSCULOSKELETAL: The patient complains of pain and discomfort in her left arm. Also, has pain and discomfort down to the right hip. The patient is lying in a left lateral decubitus position. Complains about pain and discomfort. Complains of pain and discomfort in her right knee. States that her right leg is about 2 inches shorter than the left. IMPRESSION: 1. Chronic pain in the low back area and involving the hip. 2. Anal cancer, status post surgery. 3. Hypoglycemia. 4. Anemia. 5. Migraines. 6. Fracture, right hip. 7. T9 compression fracture. 8. T8 compression fracture. 9. Black outs. 10. Hypotension. 11. Posttraumatic stress disorder. 12. Neck problems. 13. Drug-induced constipation. 14. Insomnia. 15. Chronic pain syndrome. 16. The patient has had greater than 10 surgeries. 17. Radiation to the pelvic area because of rectal cancer. RECOMMENDATIONS: We discussed treatment options with the patient. Again, we discussed the patient's history with her. We listened to her, explained her history. We have explained that opioid medications [facility] may not be a good fit for her. We would consider use of Butrans patch 10 mg and changed this every week. Hopefully, she would find some benefit from that. She will continue with baclofen 20 mg b.i.d. The patient will also continue with Mobic and note its efficacy. She felt that this medication was somewhat helpful. She will monitor her GI tract. Stop this medication if she notes any GI complaints. We have discussed the possibility of a back brace to help by restricting the mobility and movement, which might be helpful. A script for the Butrans patch [place] [address] PAIN MANAGEMENT CONSULTATION Name: MIRACLE GOMEZLILLIAM SHAUN Room: [facility]#: [id number] Admission: 05/10/19 Attend Phys: Alejandra Rose MD Discharge: Date of : 70 Report #: [id number] We would like to thank you for letting us participate in her care. We hope she continues to improve. By: [id number]. Andres Rose MD /PATRIC
== END ==
LOC: M.PC 05:10
DX: S72.001A Fracture of unspecified part of neck of right femur, initial encounter for closed fracture (principal); M48.54XA Collapsed vertebra, not elsewhere classified, thoracic region, initial encounter for fracture; G89.29 Other chronic pain; D64.9 Anemia, unspecified; E16.2 Hypoglycemia, unspecified; K59.03 Drug induced constipation; G47.00 Insomnia, unspecified; Z79.899 Other long term (current) drug therapy; X58.XXXA Exposure to other specified factors, initial encounter; Y93.9 Activity, unspecified; Y92.89 Other specified places as the place of occurrence of the external cause; Y99.8 Other external cause status

== ENCOUNTER 2019-06-30 22:44 | Emergency (ER) | payer OTHER, MEDICAID ==
[~2019-06-30] VITALS: Ht 165.1 cm; Wt 54.4 kg
[2019-07-01] MEDS ORDERED: PERCOCET 5-3251 EACH PO (00:37)
[2019-07-01 01:05] VITALS: BP 122/76
== END 2019-07-01 01:05 | disposition home or self-care (01) ==
LOC: M.ERS 22:44
DX: G89.29 Other chronic pain (principal); M25.551 Pain in right hip; G43.909 Migraine, unspecified, not intractable, without status migrainosus; F17.210 Nicotine dependence, cigarettes, uncomplicated; Z88.2 Allergy status to sulfonamides; Z88.1 Allergy status to other antibiotic agents; Z88.5 Allergy status to narcotic agent; Z88.8 Allergy status to other drugs, medicaments and biological substances; Z86.2 Personal history of diseases of the blood and blood-forming organs and certain disorders involving the immune mechanism; Z85.048 Personal history of other malignant neoplasm of rectum, rectosigmoid junction, and anus

== ENCOUNTER → 2019-10-16 | Outpatient (CLI) | payer OTHER, MEDICAID ==
[2019-10-16 11:25] VITALS: BP 135/90
--- NOTE | 2019-10-16 12:07 | NUR ---
LEFT CHEST IMPLANTABLE PORT ACCESSED PER ORDER FROM LEN ARGUELLO. FLUSHED AND ASSESSED FOR PATENTCEY AND PACKED WITH HEPARIN BEFORE DEACCESSED. PATIENT ASKED ME TO LEAVE PORT ACCESSED, PLACED CALL TO DR. GALARZA OFFICE BUT WAS TOLD THAT THE PROCEDURE SCHEDULED FOR TOMORROW WOULD NO REQUIRE IMPLANTABLE PORT ACCESS. EXPLAINED THIS TO PATIENT WHO VERBALIZED UNDERSTANDING OF THIS BACK TO ME. PLESCHETTE OF SCHEDULING CALLED ME TO LET ME KNOW THAT WE WERE ASKED TO CANCEL THIS IMPLANTABLE PORT FLUSH BUT SHE WAS UNABLE TO REACH PATIENT AND PATIENT DID NO RETURN HER CALL FROM MESSAGES LEFT. PATIENT CAME AND WAS ADMITTED TO OUTPATIENT BEFORE CANCELLATION WAS RECEIVED. DISCHARGE INSTRUCTIONS REVIEWED, PATIENT VERBALIZED UNDERSTANDING OF INSTRUCTION AND WAS DISMISSED TO [facility].
== END ==
LOC: M.INFUS 11:20
DX: Z45.2 Encounter for adjustment and management of vascular access device (principal)